=== PATIENT | female | born 1940 | race Caucasian/White ===

== ENCOUNTER → 2016-10-04 | Outpatient (CLI) | payer MEDICARE, OTHER ==
--- NOTE | 2016-10-04 15:13 | PCVCIMAG ---
EXAM: LEFT LOWER EXTREMITY ARTERIAL DUPLEX INDICATION: Peripheral arterial disease. 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 FINDINGS: Left Leg: Satisfactory arterial waveform in the common femoral and profunda femoral artery. Complete occlusion mid/distal superficial femoral artery and throughout the popliteal artery. There is refilling of the tibioperoneal trunk. The anterior tibial artery and posterior tibial artery show blunted arterial waveforms throughout without obvious stenosis. Peroneal artery is occluded. IMPRESSION: Complete occlusion mid/distal right superficial femoral artery and right popliteal artery as reviewed above. LOC:[id number]
== END | disposition home or self-care (01) ==
LOC: PCVCIMAG 10:39
PROVIDERS: ATTEND Nuclear Medicine Nuclear Cardiology
DX: I73.9 Peripheral vascular disease, unspecified (principal); L97.529 Non-pressure chronic ulcer of other part of left foot with unspecified severity; I74.8 Embolism and thrombosis of other arteries; J44.9 Chronic obstructive pulmonary disease, unspecified; E78.00 Pure hypercholesterolemia, unspecified; I10 Essential (primary) hypertension; E03.9 Hypothyroidism, unspecified; Z89.422 Acquired absence of other left toe(s); Z86.73 Personal history of transient ischemic attack (TIA), and cerebral infarction without residual deficits
CPT/HCPCS: 93926

== ENCOUNTER → 2016-10-05 | Outpatient (CLI) | payer MEDICARE | END | disposition home or self-care (01) | LOC: PCVCCLINIC 11:40 | PROVIDERS: ATTEND Nuclear Medicine Nuclear Cardiology | DX: I73.9 Peripheral vascular disease, unspecified (principal); I10 Essential (primary) hypertension; J44.9 Chronic obstructive pulmonary disease, unspecified; M06.9 Rheumatoid arthritis, unspecified; E78.00 Pure hypercholesterolemia, unspecified; E03.9 Hypothyroidism, unspecified; Z86.73 Personal history of transient ischemic attack (TIA), and cerebral infarction without residual deficits; Z87.891 Personal history of nicotine dependence; Z79.82 Long term (current) use of aspirin; Z88.5 Allergy status to narcotic agent; Z88.8 Allergy status to other drugs, medicaments and biological substances | CPT/HCPCS: G0463 ==

== ENCOUNTER → 2016-10-09 | Outpatient (CLI) | payer MEDICARE | END | disposition home or self-care (01) | LOC: PCVCCLINIC 10:14 | PROVIDERS: ATTEND Nuclear Medicine Nuclear Cardiology | DX: Z01.812 Encounter for preprocedural laboratory examination (principal); I73.9 Peripheral vascular disease, unspecified | CPT/HCPCS: 36415 ==

== ENCOUNTER → 2016-10-10 | Outpatient (CLI) | payer MEDICARE ==
[~2016-10-10] MED LIST: ACETAMINOPHEN 500 MG TABLET PO ONE; ASPIRIN 325 MG TABLET ONE; CLOPIDOGREL BISULFATE 75 MG TABLET ONE; DIAZEPAM 10 MG TABLET. ONE; EPTIFIBATIDE BOLUS 2,000 MCG/ML 10ML VIAL. IV ONE; HEPARIN SODIUM 5,000 UNIT/ML VIAL for PCVC. ONE; IODIXANOL 270 MG/ML 100 ML VIAL. ONE; IV NORMAL SALINE 1000ML BAG 1,000 ML ONE; IV NORMAL SALINE 500ML BAG 500 ML ONE; LIDOCAINE 1% Multi-Dose 20 ML VIAL. ONE; MIDAZOLAM HCL/PF 2 MG/2 ML VIAL. ONE; ONDANSETRON PF 4 MG/2 ML VIAL. ONE; fentaNYL PF VIAL 100 MCG/2 ML VIAL ONE; hydrALAZINE 20 MG/ML VIAL. ONE
--- NOTE | 2016-10-10 13:41 | PCVCINTER ---
EXAM: 1. AORTOGRAM AND BILATERAL LOWER EXTREMITY RUNOFF ANGIOGRAM 2. BILATERAL RENAL ANGIOGRAPHY 3. LEFT SUPERFICIAL FEMORAL ARTERY AND POPLITEAL ARTERY ATHERECTOMY AND STENT PLACEMENT. 4. SECONDARY THROMBECTOMY LEFT SUPERFICIAL FEMORAL ARTERY AND POPLITEAL ARTERY. 5. DRUG COATED BALLOON ANGIOPLASTY LEFT SUPERFICIAL FEMORAL ARTERY AND POPLITEAL ARTERY. 6. LEFT ANTERIOR TIBIAL ARTERY STENT PLACEMENT. 7. RIGHT EXTERNAL ILIAC ARTERY STENT PLACEMENT. INDICATION: Peripheral arterial disease. Nonhealing ulcer left lower extremity. Hypertension. Renal atherosclerosis. PROCEDURE: Procedure and risks of angiography intervention is appropriate including limb loss stroke and were discussed with the patient's family and consent obtained. The patient's right groin was prepped abnormal sterile fashion. IV conscious sedation was used to procedure with appropriate monitoring for 90 minutes. Ultrasound was used to interrogate the right groin and showed the right common femoral artery to be patent. A permanent spot film was obtained. Under ultrasound guidance access into the right common femoral artery was obtained and a 5 Slovenian sheath was placed. Through this a 5 Slovenian flush catheter was placed into the abdominal aorta at the level of the renal arteries and AP aortogram was performed. Catheter was positioned at the aortic bifurcation and both oblique views of the pelvis were obtained. Catheter was positioned into the right external iliac artery and right leg runoff angiography was performed. Catheter was exchanged for a visceral catheter was placed into the right renal arteries and right renal angiograms obtained. Catheter was placed into the the left renal arteries and left renal angiograms were obtained. Catheter was advanced to the level of the left external iliac artery and left leg runoff angiography was obtained. Patient was given 4500 units of heparin. A 6 Slovenian crossover sheath was placed via the right groin to the level of the left common femoral artery. Atherectomy of the left superficial femoral artery and popliteal artery was performed with 2.0 mm Catapult laser atherectomy catheter in the standard fashion. Following atherectomy small areas of thrombus were observed and because of this secondary thrombectomy throughout the left superficial femoral artery and popliteal artery was carried out with mechanical suction thrombectomy catheter in the standard fashion. Minimal debris was removed. Stent placement across the areas of high-grade stenosis in the left proximal anterior tibial artery was carried out with a 3.5 x 30 Medtronic integrity stent with subsequent dilatation to 3.5 mm. Stent placement across the areas of high-grade stenosis in the left superficial femoral artery and popliteal artery was carried out with a 6 x 150, 6 x 150, 6 x 150, and 6 x 40 Smart control stents with subsequent dilatation to 4 mm the popliteal artery and 5 mm in the superficial femoral artery. Following this drug coated balloon angioplasty of the left popliteal artery was carried out with a 4 x 150 and 4 x 150 Medtronic Admiral [employer]ENT catheter. Following this drug coated balloon angioplasty of the left superficial femoral artery was carried out with a 5 x 150 and 5 x 120 Medtronic Admiral [employer] AGENT catheters. Follow-up angiogram was performed. Stent placement across the areas of high-grade stenosis in the right external iliac artery was carried out with a 8 x 60 Smart control stent with subsequent dilatation to 7.0 mm. Catheters and wires removed. Sheath was removed and hemostasis obtained using the Exoseal device. No immediate complications. FINDINGS: Aortogram: There are 2 right and one left renal artery. Moderate plaque infrarenal abdominal aorta which is normal in caliber. Pelvis: Mild plaque in the right and left common iliac artery without significant stenosis. 80% stenosis in the proximal right external iliac artery. Both internal iliac arteries are patent proximally. Moderate plaque left external iliac artery without flow-limiting stenosis. Right renal artery: The upper renal artery is a smaller renal artery showing moderate plaque in its proximal portion which does not cause significant stenosis. Lower renal artery is larger showing mild plaque proximally without significant stenosis. Left renal artery: Moderate plaque proximal vessel does not cause significant stenosis. No branch vessel stenosis. Right leg: Common femoral and profunda femoral arteries are patent. Long segment occlusion throughout the superficial femoral artery. There is refilling of the distal most superficial femoral artery into the popliteal artery which shows moderate plaque and mild stenosis which is not flow-limiting. The origin of the anterior tibial artery is at the level of the knee joint and this artery is patent into the dorsalis pedis. The tibioperoneal trunk, peroneal artery, and posterior tibial artery are patent. Left leg: Common femoral and profunda femoral arteries are patent. The proximal superficial femoral artery is moderate decrease in size. Occlusion throughout the mid and distal superficial femoral artery with small islands of patent vessel. Occlusion throughout most of the length of the popliteal artery including the proximal distal portions. There is refilling of the trifurcation with three-vessel runoff into the foot. Note is made the peroneal artery and posterior tibial artery are small in size as is the tibioperoneal trunk. Left superficial femoral artery and popliteal artery: Following procedure as above these vessels show satisfactory patency. Left anterior tibial artery: Following procedure as above vessel is widely patent throughout. Right external iliac artery: Following stent placement as above vessel shows good patency. IMPRESSION: Long segments of occlusion throughout the left superficial femoral artery and left popliteal artery were treated as above with good patency restored. High-grade stenosis proximal left anterior tibial artery was also treated with stent placement with good patency restored. Long segment occlusion throughout the right superficial femoral artery. I will follow-up with the patient in 3 months in the office regarding her progress. Currently the patient is asymptomatic in the right leg with no tissue loss and no intervention is planned with the right SFA at this time. LOC:[id number]
== END | disposition home or self-care (01) ==
LOC: PCVCINTER 07:30
PROVIDERS: ATTEND Nuclear Medicine Nuclear Cardiology
DX: I70.263 Atherosclerosis of native arteries of extremities with gangrene, bilateral legs (principal); I70.1 Atherosclerosis of renal artery; I10 Essential (primary) hypertension
CPT/HCPCS: 36252; 37186; 37221; 37227; 37230; 75716; 76937; 99152; 99153; C1725; C1751; C1757; C1760; C1769; C1876; C1885; C1887; C1894; C2623; J0360; J0690; J1327; J1644; J2250; J2405; J3010; J7030; J7040; Q9966

== ENCOUNTER → 2017-01-11 | Outpatient (CLI) | payer MEDICARE ==
--- NOTE | 2017-01-11 10:59 | PCVCIMAG ---
EXAM: BILATERAL CAROTID DUPLEX INDICATION: Carotid Occlusive Disease. FINDINGS: Doppler Measurements (centimeters per second): RIGHT: Peak CCA-59, Peak ECA-102, Diastolic ICA-12, Peak ICA-66, ICA/CCA Ratio-1.1. LEFT: Peak CCA-67, Peak ECA-96, Diastolic ICA-11, Peak ICA-73, ICA/CCA Ratio-1.1. RIGHT CAROTID: The carotid bulb has mild plaque. The proximal internal carotid artery shows <40% stenosis. The common carotid artery shows no significant stenosis. The external carotid artery shows no significant stenosis. LEFT CAROTID: The carotid bulb has mild plaque. The proximal internal carotid artery shows <40% stenosis. The common carotid artery shows no significant stenosis. The external carotid artery shows no significant stenosis. Antegrade flow in both vertebral arteries. IMPRESSION: <40% stenosis of the right internal carotid artery with mild plaque. <40% stenosis of the left internal carotid artery with mild plaque. LOC:[place] [id number]
--- NOTE | 2017-01-11 12:10 | PCVCIMAG ---
EXAM: AORTOILIAC DUPLEX INDICATION: Peripheral arterial disease FINDINGS: AORTA: Suprarenal aorta measures maximum diameter of 2.1 cm. There is not a fusiform infrarenal aortic aneurysm. The infrarenal aorta measures maximum diameter of 2.1 cm. No aortic stenosis. RIGHT COMMON ILIAC ARTERY: Maximum diameter is 1.2 cm. No significant stenosis. RIGHT EXTERNAL ILIAC ARTERY: No significant stenosis. LEFT COMMON ILIAC ARTERY: Maximum diameter is 1.4 cm. No significant stenosis. LEFT EXTERNAL ILIAC ARTERY: No significant stenosis. IMPRESSION: No abdominal aortic aneurysm. No aortoiliac stenosis seen. Previous right external iliac artery stent maintaining satisfactory patency. LOC:[id number]
--- NOTE | 2017-01-11 12:20 | PCVCIMAG ---
EXAM: LEFT LOWER EXTREMITY ARTERIAL DUPLEX INDICATION: Peripheral Arterial Disease. Leg pain. FINDINGS: Left Leg: Satisfactory to waveforms in the common femoral and profunda femoral arteries without stenosis. Mid and upper superficial femoral artery stents maintaining satisfactory patency. Distal SFA stent is occluded as is the stent throughout the popliteal artery. The peroneal and posterior tibial arteries are occluded. Previous stent proximal anterior tibial artery is patent. The anterior tibial artery appears patent although has blunted flow. IMPRESSION: Since September 2016 distal left superficial femoral artery stent and popliteal artery stent has become occluded as reviewed above. Previous proximal left anterior tibial artery stent remains patent. Unchanged occlusion of the left peroneal and left posterior tibial arteries. LOC:[id number]
== END | disposition home or self-care (01) ==
LOC: PCVCIMAG 08:09
PROVIDERS: ATTEND Nuclear Medicine Nuclear Cardiology
DX: I65.23 Occlusion and stenosis of bilateral carotid arteries (principal); I73.9 Peripheral vascular disease, unspecified; M79.605 Pain in left leg
CPT/HCPCS: 93880; 93926; 93978